=== PATIENT | male | born 1980 | race Caucasian/White ===

== ENCOUNTER 2016-09-08 23:34 | Emergency (ER) | payer MEDICAID | END 2016-09-09 00:35 | disposition home or self-care (01) | LOC: D.ER 23:34 | DX: M77.9 Enthesopathy, unspecified (principal) ==

== ENCOUNTER 2017-07-04 12:20 | Emergency (ER) | payer MEDICAID | END 2017-07-04 13:29 | disposition home or self-care (01) | LOC: D.ER 12:20 | DX: M77.9 Enthesopathy, unspecified (principal); L02.212 Cutaneous abscess of back [any part, except buttock and flank] ==

== ENCOUNTER 2017-08-18 05:48 | Emergency (ER) | payer MEDICAID | END 2017-08-18 06:13 | disposition home or self-care (01) | LOC: D.ER 05:48 | DX: L02.412 Cutaneous abscess of left axilla (principal); F17.200 Nicotine dependence, unspecified, uncomplicated ==

== ENCOUNTER 2017-08-21 09:45 | Emergency (ER) | payer MEDICAID | END 2017-08-21 12:05 | disposition home or self-care (01) | LOC: D.ER 09:45 | DX: L03.213 Periorbital cellulitis (principal) ==

== ENCOUNTER 2018-09-10 17:16 | Emergency (ER) | payer MEDICARE ==
[~2018-09-10] VITALS: Ht 175.3 cm; Wt 68.2 kg
[2018-09-10 17:20] VITALS: Ht 175.3 cm; Wt 68.2 kg
[2018-09-10] MEDS ORDERED: TYLENOL W/CODEI1 TAB PO (17:47)
[2018-09-10] MEDS ORDERED: CLEOCIN HCL300 MG PO (17:47)
[2018-09-10 18:00] VITALS: BP 105/57
== END 2018-09-10 18:01 | disposition home or self-care (01) ==
LOC: D.ER 17:16
DX: L02.31 Cutaneous abscess of buttock (principal); F17.200 Nicotine dependence, unspecified, uncomplicated

== ENCOUNTER → 2018-10-26 13:53 | Outpatient (CLI) | payer MEDICARE ==
[~2018-10-26 13:53] MED LIST: CLEOCIN HCL300 MG PO; TYLENOL W/CODEI1 TAB PO
== END | disposition home or self-care (01) ==
LOC: D.RAD 13:53
DX: S43.432A Superior glenoid labrum lesion of left shoulder, initial encounter (principal)